=== PATIENT | female | born 1990 ===

== ENCOUNTER 2022-02-13 20:39 | Emergency (ER) | payer MEDICAID ==
[~2022-02-13] VITALS: Ht 152.4 cm; Wt 56.9 kg
[2022-02-13 20:51] VITALS: BP 149/83
== END 2022-02-13 23:48 | disposition left against medical advice (07) ==
LOC: ER 21:13
DX: F41.0 Panic disorder [episodic paroxysmal anxiety] (principal); Z53.21 Procedure and treatment not carried out due to patient leaving prior to being seen by health care provider